=== PATIENT | female | born 1970 ===

== ENCOUNTER 2021-12-04 12:14 | Emergency (ER) | payer OTHER ==
[2021-12-04] MEDS ORDERED: HYDROmorphone 1 MG/ML Syringe IVPUSH ONE ×2 (12:40→13:44)
[2021-12-04] MEDS ORDERED: Lactated Ringers 1,000 ML IV ONE (12:40)
[2021-12-04] MEDS ORDERED: Ondansetron 4 MG/2 ML SDV IVPUSH ONE (12:40)
[2021-12-04 13:57] LABS: ANION GAP 11.4 mEq/L (7-13); CHLORIDE,CL 101 mmol/L (98-107); SODIUM,NA 139 mmol/L (136-145)
== END 2021-12-04 15:58 | disposition home or self-care (01) ==
LOC: DL.ED 12:14
DX: S22.31XA Fracture of one rib, right side, initial encounter for closed fracture (principal); I10 Essential (primary) hypertension; W10.9XXA Fall (on) (from) unspecified stairs and steps, initial encounter
CPT/HCPCS: 36415; 71045; 71250; 80053; 83605; 85025; 86140; 96374; 96375; 96376; 99283; 99284-25; J1170; J2405; J7120